=== PATIENT | female | born 1990 | race Caucasian/White ===

== ENCOUNTER 2019-08-13 02:27 | Emergency (ER) | payer SELFPAY ==
[~2019-08-13] VITALS: Ht 160 cm; Wt 79.2 kg
[2019-08-13] MEDS ORDERED: NAPROXEN500 MG PO (03:21)
[2019-08-13 03:48] VITALS: BP 122/73
== END 2019-08-13 03:48 | disposition home or self-care (01) | DRG 563 ==
LOC: ED 02:27
DX: S53.401A Unspecified sprain of right elbow, initial encounter (principal); F17.200 Nicotine dependence, unspecified, uncomplicated; V18.0XXA Pedal cycle driver injured in noncollision transport accident in nontraffic accident, initial encounter; Y93.55 Activity, bike riding